=== PATIENT | male | born 1990 | race Caucasian/White ===

== ENCOUNTER 2021-09-16 19:29 | Emergency (ER) | payer OTHER ==
[~2021-09-16] VITALS: Ht 170.2 cm; Wt 81.6 kg
[2021-09-16 19:35] VITALS: BP_SYST 110
--- NOTE | 2021-09-16 21:09 | NUR ---
Patient to ER bed hallway to gown for evaluation. Side rails up. Report given to Mya CRANE.
--- NOTE | 2021-09-16 21:11 | NUR ---
Patient BIB by family. C/O Dog bite x today. Patient reported, patient and his family walked on [address] and dog (stray dog ) jumped and bite his right arm twice. A/O,X4, right forearm, bite reuben, bleeding control, pain rate 05/29.
--- NOTE | 2021-09-16 21:59 | NUR ---
ER Dr. Quarles at bedside examining patient.
--- NOTE | 2021-09-16 22:27 | NUR ---
[facility] radiology[facility]
[2021-09-16] MEDS: OXYCODONE/ACETAMINOPHEN 5-325 TABLET PO ONE (22:30)
[2021-09-16] MEDS: AMOXICILLIN/CLAVULANATE POTASSIUM 875 MG TABLET PO ONE (22:30)
[2021-09-16] MEDS: DIPH-TET-PERTUS Vaccine 0.5 ML VIAL (ADACEL) I.M. ONE (22:32)
[2021-09-16] MEDS ORDERED: AMOX-426 PO (22:53)
--- NOTE | 2021-09-16 23:12 | NUR ---
Patient has a 3 cm laceration to right forearm. Dr. Quarles applied sutures using sterile technique. Edges well approximated. Site cleansed with NSS. Dressing of Adhesiva and Bacitracin applied to site. No bleeding noted. Pt tolerated well.
[2021-09-16] MEDS: LIDOCAINE/EPI 1% 1:100000 20 ML VIAL INJ ONE (23:19)
[2021-09-16] MEDS ORDERED: BACITRACIN 1 GM OINT TP ONE (23:20)
[2021-09-16 23:39] VITALS: BP_SYST 110
--- NOTE | 2021-09-16 23:39 | NUR ---
Patient given written and verbal discharge instructions and verbalizes understanding. ER MD discussed with patient the results and treatment provided. Patient in stable condition. ID arm band removed. No Rx given. Patient educated on pain management and to follow up with PMD. Pain Scale 1/10. Opportunity for questions provided and answered.
--- NOTE | 2021-09-17 00:22 | NUR ---
Faxed to [facility] Fax [phone]
== END 2021-09-16 23:39 | disposition home or self-care (01) ==
LOC: SED 19:29
DX: S51.851A Open bite of right forearm, initial encounter (principal); Z79.899 Other long term (current) drug therapy; W54.0XXA Bitten by dog, initial encounter; Y93.89 Activity, other specified; Y92.89 Other specified places as the place of occurrence of the external cause; Y99.8 Other external cause status
CPT/HCPCS: 73090; 90715; 99283